=== PATIENT | female | born 1995 | race Caucasian/White ===

== ENCOUNTER 2018-11-14 14:59 | Outpatient (CLI) | payer BC, OTHER ==
--- NOTE | 2018-11-14 18:09 | ULT ---
OBSTETRIC SONOGRAM: 11/14/18 HISTORY: Second trimester gestation. evaluation. FINDINGS: Single intrauterine gestation in variable presentation. Cervix is closed and 5.1 cm. Amniotic fluid i s within normal limits. Grade 0 placenta is anterior. spine and kidneys are intact as visualize d. No gross intracranial abnormalities. Three vessel cord shows a normal insertion. Four chamber hear t shows motion at 150 beats per minute. Measurements are as follows: Biparietal diameter 17 weeks, 2 days Head circumference 17 weeks, 2 days Abdominal circumference 17 weeks, 4 days Femur length 17 weeks, 5 days Estimated date of delivery based on today's sonogram, 04/22/19. Hadlock 21 percentile. IMPRESSION: Single viable intrauterine gestation with estimated gestational age based on today's sonogram of 17 w eeks, 2 days. POS: TAMARA
== END 2018-11-14 15:00 | disposition home or self-care (01) ==
LOC: SCSULT 14:59
PROVIDERS: ATTEND Family Medicine
DX: Z34.82 Encounter for supervision of other normal pregnancy, second trimester (principal); Z3A.17 17 weeks gestation of pregnancy
CPT/HCPCS: 76805

== ENCOUNTER 2019-04-20 12:21 | Inpatient (IN) | payer BC, OTHER ==
[2019-04-20 13:04] VITALS: BMI 33.6
[2019-04-20] MEDS ORDERED: NS / Oxytocin 40 units/1000ml 1,000 ML IV PRN (13:24)
[2019-04-20] MEDS ORDERED: Ondansetron PF 4 MG/2 ML Vial IVP PRN ×2 (13:24→22:37)
[2019-04-20] MEDS ORDERED: Lidocaine 1% (PF) 30 ML VIAL SC PRN (13:24)
[2019-04-20] MEDS ORDERED: Promethazine HCl 25 MG/ML VIAL IM PRN (13:24)
[2019-04-20] MEDS ORDERED: hydrALAZINE 20 MG/ML VIAL SLOW IVP PRN ×2 (13:24→22:37)
[2019-04-20] MEDS ORDERED: Misoprostol 100 MCG TAB VAG SCH (13:30)
[2019-04-20] MEDS: Lactated Ringer's 1,000 ML IV SCH ×2 (13:30→18:31)
[2019-04-20] MEDS ORDERED: NS w/ Oxytocin 10 units 500 ML IV SCH (13:30)
[2019-04-20] MEDS ORDERED: Lactated Ringer's 1,000 ML IV SCH (13:30)
[2019-04-20 13:53] LABS: Mean Corpuscular HGB CONC 35.3 g/dL (32.0-36.0); Mean Corpuscular Hemoglobin 32.5 pg (27.0-31.0); Mean Corpuscular Volume 92.2 fL (78.0-98.0); Mean Platelet Volume 8.2 fL (7.4-10.4); Platelet Count 181 thou/uL (130-400); RBC Distribution Width 12.2 % (11.5-14.5); Red Blood Cell (RBC) Count 4.31 mill/uL (4.20-5.40); White Blood Cell (WBC) Count 12.3 thou/uL (4.8-10.8)
[2019-04-20 14:35] LABS: HBSAg Index 0.24 S/CO (0-0.99); Hep B Surf Ag Non-Reactive S/CO (NonReactive)
[2019-04-20 14:36] LABS: Syphilis Antibody Nonreactive (Nonreactive); Syphilis Antibody Index 0.03 S/CO (<1.00 Non-Reactive)
[2019-04-20] MEDS ORDERED: Butorphanol Tartrate 1 MG/ML VIAL ONE (16:45)
[2019-04-20] MEDS ORDERED: Butorphanol Tartrate 1 MG/ML VIAL SLOW IVP PRN (16:46)
[2019-04-20] MEDS ORDERED: Fentanyl 4 mcg/Bup 0.1% Cadd 100 ML ONE (17:46)
[2019-04-20] MEDS ORDERED: Lidocaine 1% (PF) 30 ML VIAL ONE (19:07)
[2019-04-20] MEDS ORDERED: Misoprostol 200 MCG TAB ONE (19:07)
[2019-04-20] MEDS ORDERED: traMADol HCl 50 MG TAB PO PRN (22:37)
[2019-04-20] MEDS ORDERED: Adacel (T-DAP) 0.5 ML SYRINGE IM ONE (22:37)
[2019-04-20] MEDS ORDERED: Benzocaine-Menthol 82.5 ML CAN TOP PRN (22:37)
[2019-04-20] MEDS ORDERED: Milk Of Magnesia 30 ML UDCUP PO PRN (22:37)
[2019-04-20] MEDS ORDERED: Bisacodyl 10 MG SUPP PR PRN (22:37)
[2019-04-20] MEDS ORDERED: diphenhydrAMINE 25 MG CAP PO PRN (22:37)
[2019-04-20] MEDS ORDERED: NS / Oxytocin 40 units/1000ml 1,000 ML IV SCH (22:37)
[2019-04-20] MEDS ORDERED: Lanolin Ointment 7 GM TUBE TOP PRN (22:37)
[2019-04-20] MEDS ORDERED: Acetaminophen/Codeine 30-300mg Tablet PO PRN (22:37)
[2019-04-20] MEDS ORDERED: Preparation H Ointment 28 GM TUBE PR PRN (22:37)
[2019-04-20] MEDS: Ibuprofen 800 MG TAB PO SCH (22:40)
[2019-04-21] MEDS: Ibuprofen 800 MG TAB PO SCH ×3 (06:31→21:36)
[2019-04-21] MEDS: Prenatal Vitamin 1 TAB PO SCH (08:36)
[2019-04-21] MEDS: Docusate Calcium (SURFAK) 240 MG CAP PO SCH ×2 (08:36→21:36)
[2019-04-21] MEDS ORDERED: Bupivacaine HCl 0.25%/Epi 0.0005/PF 10 ML VIAL FS ONE (11:11)
[2019-04-21] MEDS: HYDROcodone/Acetaminophen 5/325 mg Tablet PO PRN (20:19)
[2019-04-22] MEDS: HYDROcodone/Acetaminophen 5/325 mg Tablet PO PRN (05:08)
[2019-04-22] MEDS: Ibuprofen 800 MG TAB PO SCH (05:08)
[2019-04-22 08:22] VITALS: BP 123/59; TEMP 98.5
[2019-04-22] MEDS: Prenatal Vitamin 1 TAB PO SCH (09:20)
[2019-04-22] MEDS: Docusate Calcium (SURFAK) 240 MG CAP PO SCH (09:20)
== END 2019-04-22 11:15 | disposition home or self-care (01) | DRG 807 ==
LOC: L&D/OP 12:21 → L&D 12:49 → 3SW 22:28
PROVIDERS: ADMIT Family Medicine; ATTEND Family Medicine
PROC: 10E0XZZ Delivery of Products of Conception, External Approach (ICD-10-PCS; principal; 2019-04-20)
DX: O48.0 Post-term pregnancy (principal); Z37.0 Single live birth; Z3A.40 40 weeks gestation of pregnancy; Z88.2 Allergy status to sulfonamides
CPT/HCPCS: 36415; 86780; 86850; 86900; 86901; 87340; 99285; J0595; J2001; J2590

== ENCOUNTER 2020-04-24 08:15 | Outpatient (CLI) | payer OTHER ==
[2020-04-24] MEDS ORDERED: Magnevist 469MG/ML 20 ML VIAL ONE (10:12)
--- NOTE | 2020-04-24 10:51 | MRI ---
Exam: Brain MRI with and without contrast HISTORY: Pain and paresthesia. Bilateral hand weakness. COMPARISON: None FINDINGS: Gradient echo sequence: No hemorrhage Calvarium: Appropriate T1 marrow signal intensity Midline brain parenchyma: Unremarkable Cerebrum:No parenchymal mass, mass effect or midline shift. Brain volume is age-appropriate. Cortical matthews-white matter differentiation is preserved. There are no significant T2 or FLAIR white matter hyperintensities. Ventricles: No evidence of hydrocephalus. Sinuses and mastoid air cells: Adequate aeration Diffusion: Central arterial flow is maintained. Absent restricted diffusion. Postcontrast images: No pathologic enhancement of the brain parenchyma. IMPRESSION: 1. No pathologic enhancement the brain parenchyma 2. No abnormal T2 or FLAIR white matter hyperintensities.
--- NOTE | 2020-04-24 10:57 | MRI ---
CERVICAL SPINE MRI WITH AND WITHOUT CONTRAST: HISTORY: Paresthesias of the skin. Bilateral hand weakness. COMPARISON: None. FINDINGS: Straightening of cervical lordosis is presumed to be positional. No significant STIR hyperintensity t o suggest ligamentous injury or vertebral body edema. Appropriate T1 marrow signal intensity of the cervical vertebrae. Cervical spine vertebral body height is maintained. There is no fracture. Visualized brain parenchyma, cervicomedullary junction, cervical cord and the upper thoracic cord hav e a normal size and signal intensity. Postcontrast images do not demonstrate any abnormal enhancement of the vertebral bodies. There is no abnormal enhancement in the visualized brain parenchyma or spinal cord. C2-C3: No significant central canal stenosis or significant neural foraminal narrowing. C3-C4: Minimal broad-based disc bulge which deforms the midline and right aspect of the thecal sac. M ild central canal stenosis. Neural foramina are patent. C4-C5: Mild loss of disc space height. Broad-based disc bulge abuts the thecal sac. Mild central hernando l stenosis. No cord signal abnormality. Bilaterally, neural foramina are patent. C5-C6: Broad-based disc bulge abuts the thecal sac. No significant central canal stenosis. Neural for mandie are patent. C6-C7: No significant central canal stenosis or significant neural foraminal narrowing. C7-T1: No significant central canal stenosis or significant neural foraminal narrowing. IMPRESSION: 1. No abnormal signal intensity in the visualized brain parenchyma and spinal cord. No evidence of pa thologic enhancement. 2. No significant central canal stenosis or significant neural foraminal narrowing throughout the cer vical spine. Transcribed Date/Time: 04/24/2020 11:43 AM
== END 2020-04-24 08:16 | disposition home or self-care (01) ==
LOC: BICMRI 08:15
PROVIDERS: ATTEND Nurse Practitioner Acute Care
DX: R20.2 Paresthesia of skin (principal)
CPT/HCPCS: 70553; 72156; A9579

== ENCOUNTER 2020-05-11 12:47 | Outpatient (CLI) | payer OTHER ==
--- NOTE | 2020-05-11 13:34 | RAD ---
Radiograph sacroiliac joints 3 views: 05/11/2020 HISTORY: 24-year-old female with sacroiliitis. FINDINGS: Bilateral SI joint spaces are neither widened nor narrowed. There is bilateral mild sclerosis, but no erosion or significant osteophytosis identified. IMPRESSION: no erosions of SI joints.
== END 2020-05-11 12:48 | disposition home or self-care (01) ==
LOC: BICRAD 12:47
PROVIDERS: ATTEND Internal Medicine Rheumatology
DX: M46.1 Sacroiliitis, not elsewhere classified (principal)
CPT/HCPCS: 72202

== ENCOUNTER 2020-09-14 09:51 | Outpatient (CLI) | payer OTHER ==
--- NOTE | 2020-09-14 10:19 | RAD ---
EXAM: 2 views of the right knee HISTORY: Chronic knee pain COMPARISON: None FINDINGS: No knee effusion is seen. There is no evidence of fracture or dislocation. No degenerative changes are seen. No soft tissue swelling is present. IMPRESSION: Unremarkable exam.
--- NOTE | 2020-09-14 10:20 | RAD ---
EXAM: 2 views of the left knee HISTORY: Chronic left knee pain COMPARISON: None FINDINGS: No knee effusion is seen. There is no evidence of acute fracture or dislocation. No signifi cant degenerative changes are seen. No soft tissue swelling is seen. IMPRESSION: Unremarkable exam.
== END 2020-09-14 09:52 | disposition home or self-care (01) ==
LOC: BICRAD 09:51
PROVIDERS: ATTEND Internal Medicine Rheumatology
DX: M25.562 Pain in left knee (principal); G89.29 Other chronic pain

== ENCOUNTER 2021-03-30 11:43 | Outpatient (CLI) | payer OTHER ==
[2021-03-30 14:13] LABS: BHCG - Serum Negative (NEGATIVE); Pregs Control Background? CLEAR/WHITE (CLR/WHITE); Pregs Control Bar Appear? YES (CONTROL BAR)
[2021-03-31 06:37] LABS: SARS-CoV-2 NAA Rapid Test Not Detected (NotDetected)
== END 2021-03-30 11:44 | disposition home or self-care (01) ==
LOC: LABBT 11:43
PROVIDERS: ATTEND Internal Medicine Gastroenterology
DX: Z01.812 Encounter for preprocedural laboratory examination (principal); M13.0 Polyarthritis, unspecified; G89.4 Chronic pain syndrome; R19.7 Diarrhea, unspecified; Z20.822 Contact with and (suspected) exposure to COVID-19
CPT/HCPCS: 84703; U0002; U0005

== ENCOUNTER 2021-04-01 12:35 | Day surgery (SDC) | payer OTHER ==
[2021-03-31 10:52] VITALS: BMI 27.4
[2021-04-01] MEDS ORDERED: Midazolam HCl 2 mg/2 ml Vial ONE (14:29)
[2021-04-01] MEDS ORDERED: PROPOFOL 200 MG/20 ML VIAL ONE (14:57)
[2021-04-01] MEDS ORDERED: Lidocaine 1% PF 5 ML VIAL ONE (14:57)
[2021-04-01] MEDS ORDERED: Ketamine 50 MG/ML (10ML VIAL) ONE (15:08)
== END 2021-04-01 16:50 | disposition home or self-care (01) ==
LOC: SDC 12:35
PROVIDERS: ATTEND Internal Medicine Gastroenterology
PROC: 0DBF8ZX Excision of Right Large Intestine, Via Natural or Artificial Opening Endoscopic, Diagnostic (ICD-10-PCS; principal; 2021-04-01)
DX: K52.9 Noninfective gastroenteritis and colitis, unspecified (principal); K64.8 Other hemorrhoids; K21.9 Gastro-esophageal reflux disease without esophagitis; J45.909 Unspecified asthma, uncomplicated; G89.4 Chronic pain syndrome; Z79.51 Long term (current) use of inhaled steroids; Z79.899 Other long term (current) drug therapy; Z91.040 Latex allergy status
CPT/HCPCS: 88305; J2250; J2704